=== PATIENT | female | born 1940 | race Caucasian/White ===

== ENCOUNTER 2016-08-07 09:34 | Emergency (ER) | payer MEDICARE, OTHER ==
[~2016-08-07] VITALS: Ht 165.1 cm; Wt 68.0 kg
--- NOTE | 2016-08-07 09:44 | ED General ---
General Stated Complaint: FALL Source of Information: Patient, EMS, [facility] Records Exam Limitations: No Limitations History of Present Illness Time Seen by Provider: 09:41 Initial Comments Patient became nauseated while taking a shower. She apparently got lightheaded and fell. She denies loss of consciousness but was dazed. Unclear if there was head trauma. Patient called for help and eventually a clinical nursing instructor came to her. They called 911. According to jail staff patient is not acting herself. She says she feels a little better now. No vomiting here. Allergies and Home Medications Allergies Coded Allergies: acetaminophen (Verified Allergy, Unknown, 08/07/16) chlorpromazine (Verified Allergy, Unknown, 08/07/16) dextromethorphan (Verified Allergy, Unknown, 08/07/16) doxylamine (Verified Allergy, Unknown, 08/07/16) fish oil (Verified Allergy, Unknown, 08/07/16) flurazepam (Verified Allergy, Unknown, 08/07/16) pineapple (Verified Allergy, Unknown, 08/07/16) pseudoephedrine (Verified Allergy, Unknown, 08/07/16) thioridazine (Verified Allergy, Unknown, 08/07/16) Uncoded Allergies: CHLORFENIRIAMINE (Allergy, Unknown, 08/07/16) TUNA (Allergy, Unknown, 08/07/16) Home Medications Divalproex Sodium 250 Mg Tablet.dr, 250 MG PO QID, (Reported) Docusate Sodium 100 Mg Capsule, 100 MG PO DAILY, (Reported) Haloperidol 10 Mg Tablet, 10 MG PO HS, (Reported) Haloperidol 10 Mg Tablet, 10 MG PO DAILY, (Reported) Haloperidol 20 Mg Tablet, 20 MG PO DAILY, (Reported) Loperamide HCl 2 Mg Tablet, 2 MG PO PRN, (Reported) Olanzapine 10 Mg Tablet, 10 MG PO TID, (Reported) Trihexyphenidyl HCl 5 Mg Tablet, 5 MG PO DAILY, (Reported) Constitutional: malaise, weakness Respiratory: no symptoms reported Cardiovascular: syncope Gastrointestinal: nausea, vomiting Genitourinary: no symptoms reported All Other Systems Reviewed Negative Unless Noted: Yes Past Dwjvlre-Mdxort-Kbnolw Hx Reviewed Nursing Assessment Reviewed/Agree w Nursing PMH: Yes Physical Exam Vital Signs Vital Sign - Last 12Hours 08/07/16 09:52 Temp 96.9 Pulse 85 Resp 16 B/P (MAP) 113/65 Pulse Ox 92 Capillary Refill : General Appearance: No Apparent Distress, WD/WN, Other (no signs of head trauma ) Eyes: Bilateral Eye EOMI, Bilateral Eye Normal Inspection, Bilateral Eye PERRL HEENT: PERRL/EOMI, Pharynx Normal Neck: Non Tender, Supple Respiratory: Lungs Clear, Normal Breath Sounds Cardiovascular: Regular Rate, Rhythm, No Edema Gastrointestinal: No Pulsatile Mass, Soft Extremity: Normal Inspection Neurologic/Psychiatric: Alert, No Motor/Sensory Deficits Skin: Normal Color, Warm/Dry Progress/Results/Core Measures Results/Orders Lab Results Laboratory Tests Test 08/07/16 09:47 Range/Units White Blood Count 5.6 4.3-11.0 10^3/uL Red Blood Count 4.69 4.35-5.85 10^6/uL Hemoglobin 14.0 11.5-16.0 G/DL Hematocrit 42 35-52 % Mean Corpuscular Volume 89 80-99 FL Mean Corpuscular Hemoglobin 30 25-34 PG Mean Corpuscular Hemoglobin Concent 34 32-36 G/DL Red Cell Distribution Width 15.9 H 10.0-14.5 % Platelet Count 147 130-400 10^3/uL Mean Platelet Volume 10.4 7.4-10.4 FL Neutrophils (%) (Auto) 56 42-75 % Lymphocytes (%) (Auto) 29 12-44 % Monocytes (%) (Auto) 13 H 0-12 % Eosinophils (%) (Auto) 2 0-10 % Basophils (%) (Auto) 0 0-10 % Neutrophils # (Auto) 3.1 1.8-7.8 X 10^3 Lymphocytes # (Auto) 1.6 1.0-4.0 X 10^3 Monocytes # (Auto) 0.7 0.0-1.0 X 10^3 Eosinophils # (Auto) 0.1 0.0-0.3 10^3/uL Basophils # (Auto) 0.0 0.0-0.1 10^3/uL Sodium Level 139 135-145 MMOL/L Potassium Level 4.2 3.6-5.0 MMOL/L Chloride Level 106 98-107 MMOL/L Carbon Dioxide Level 21 21-32 MMOL/L Anion Gap 12 5-14 MMOL/L Blood Urea Nitrogen 17 7-18 MG/DL Creatinine 0.79 0.60-1.30 MG/DL Estimat Glomerular Filtration Rate > 60 BUN/Creatinine Ratio 22 Glucose Level 81 70-105 MG/DL Calcium Level 8.8 8.5-10.1 MG/DL Total Bilirubin 0.3 0.1-1.0 MG/DL Aspartate Amino Transf (AST/SGOT) 20 5-34 U/L Alanine Aminotransferase (ALT/SGPT) 10 0-55 U/L Alkaline Phosphatase 69 40-136 U/L Total Protein 6.4 6.4-8.2 G/DL Albumin 3.4 3.2-4.5 G/DL Labs were reviewed My Orders Orders - SEGUN VELASQUEZ MD Cbc With Automated Diff (08/07/16 09:38) Comprehensive Metabolic Panel (08/07/16 09:38) Ct Head Wo (08/07/16 09:38) Ekg Tracing (08/07/16 09:38) Vital Signs/I&O Vital Sign - Last 12Hours 08/07/16 08/07/16 09:52 10:09 Temp 96.9 96.9 Pulse 85 85 Resp 16 16 B/P (MAP) 113/65 113/65 (81) Pulse Ox 92 92 Progress Note : Time: 10:27 Progress Note Patient feels "fine". Ready for discharge. Vital signs are stable. ECG Initial ECG Rhythm: Normal Sinus Initial ECG Intervals: Normal Initial ECG Impression: Nonspecific Changes Diagnostic Imaging Comments Date of Exam:08/07/16 CT HEAD WO PROCEDURE: CT head without contrast. TECHNIQUE: Multiple contiguous axial images were obtained through the brain without the use of intravenous contrast. INDICATION: Fall. FINDINGS: There is no intracranial hemorrhage, edema or mass effect. The brain parenchyma demonstrates periventricular and deep white matter hypodensities compatible with chronic microvascular ischemic changes. There is no hydrocephalus. No extra-axial fluid collections seen. The calvarium, the paranasal sinuses and orbits appear grossly unremarkable. IMPRESSION: No intracranial hemorrhage. Departure Impression Impression: Primary Impression: Fall (no obvious injury) Additional Impression: Vaso vagal episode Disposition: 01 HOME, SELF-CARE Condition: Stable Departure-Patient Inst. Decision time for Depature: 10:24 Referrals: JONATHAN GASCA MD (PCP/Family) Primary Care Physician Patient Instructions: Preventing Falls SEGUN VELASQUEZ MD Aug 07, 2016 09:44
[2016-08-07 09:53] LABS: BASOPHILS % (AUTO) 0 % (0-10); EOSINOPHILS # (AUTO) 0.1 10^3/uL (0.0-0.3); EOSINOPHILS % (AUTO) 2 % (0-10); LYMPHOCYTES # (AUTO) 1.6 X 10^3 (1.0-4.0); LYMPHOCYTES % (AUTO) 29 % (12-44); MEAN CORPUSCULAR HEMOGLOBIN 30 PG (25-34); MEAN CORPUSCULAR HGB CONC 34 G/DL (32-36); MEAN CORPUSCULAR VOLUME 89 FL (80-99); MEAN PLATELET VOLUME 10.4 FL (7.4-10.4); MONOCYTES # (AUTO) 0.7 X 10^3 (0.0-1.0); MONOCYTES % (AUTO) 13 % (0-12); NEUTROPHILS # (AUTO) 3.1 X 10^3 (1.8-7.8); NEUTROPHILS % (AUTO) 56 % (42-75); PLATELET COUNT 147 10^3/uL (130-400); RED BLOOD COUNT 4.69 10^6/uL (4.35-5.85); RED CELL DISTRIBUTION WIDTH 15.9 % (10.0-14.5); WHITE BLOOD COUNT 5.6 10^3/uL (4.3-11.0)
[2016-08-07] MEDS ORDERED: TRIH5TAB2 PO (10:04)
[2016-08-07] MEDS ORDERED: DOCU-143 PO (10:04)
[2016-08-07] MEDS ORDERED: HALO20TA PO (10:04)
[2016-08-07] MEDS ORDERED: OLAN10TA19 PO (10:04)
[2016-08-07] MEDS ORDERED: DIVA250T2 PO (10:04)
[2016-08-07] MEDS ORDERED: LOPE-134 PO (10:04)
[2016-08-07] MEDS ORDERED: HALO10TA PO ×2 (10:04)
[2016-08-07 10:13] LABS: ALANINE AMINOTRANSFERASE 10 U/L (0-55); ALBUMIN 3.4 G/DL (3.2-4.5); ANION GAP 12 MMOL/L (5-14); ASPARTATE AMINO TRANSFERASE 20 U/L (5-34); BILIRUBIN,TOTAL 0.3 MG/DL (0.1-1.0); BLOOD UREA NITROGEN 17 MG/DL (7-18); BUN/CREATININE RATIO 22; CALCIUM 8.8 MG/DL (8.5-10.1); CARBON DIOXIDE 21 MMOL/L (21-32); CHLORIDE 106 MMOL/L (98-107); CREATININE SERUM 0.79 MG/DL (0.60-1.30); GFR ESTIMATED > 60; GLUCOSE 81 MG/DL (70-105); POTASSIUM 4.2 MMOL/L (3.6-5.0); SODIUM 139 MMOL/L (135-145); TOTAL PROTEIN 6.4 G/DL (6.4-8.2)
--- NOTE | 2016-08-07 10:18 | Diagnostic Imaging Report ---
PROCEDURE: CT head without contrast. TECHNIQUE: Multiple contiguous axial images were obtained through the brain without the use of intravenous contrast. INDICATION: Fall. FINDINGS: There is no intracranial hemorrhage, edema or mass effect. The brain parenchyma demonstrates periventricular and deep white matter hypodensities compatible with chronic microvascular ischemic changes. There is no hydrocephalus. No extra-axial fluid collections seen. The calvarium, the paranasal sinuses and orbits appear grossly unremarkable. IMPRESSION: No intracranial hemorrhage. Dictated by: Dictated on workstation # [id number]
[2016-08-07 10:55] VITALS: BP 110/68
--- OUTSIDE RECORDS SUMMARY | 2016-08-09 12:16 | XMS REPORT | Continuity of Care Document ---
Author Organization Unknown Address [address] [place] [address] Care Team Providers Care Manager Banking Name Role Phone Cruz Khanna MD Unavailable Insurance Providers Payer Name Policy Number Subscriber Name Relationship MCR Medicare [id number] KIRSTEN SELF PATIENT/SELF MEDICAID [facility] [id number] KIRSTEN SELF PATIENT/SELF Advance Directives Directive Response Recorded Date/Time Advance Directive Information: AD BROCHURE GIVEN TO PT 01/06/16 11:33am Chief Complaint and Reason for Visit Reason for Visit BACKPAIN Problems Active Medical Problems Problem Onset Date Recorded Date Status Dyspnea Unknown 04/27/14 Active 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/27/14 Active Insect bites Unknown 10/20/14 Active Back pain Unknown 01/06/16 Active Medications Current Home Medications Medication Dose Units Route Directions Days/Qty Instructions Start Date MEDICATION RECONCILIATION (Medication Reconciliation) 1 EACH EA 1 EACH BY MOUTH ONE TIME ONLY Aripiprazole (Abilify Maintena) 400 MG SUSER.SYR 400 MG BY MOUTH DAILY 1 Benztropine (Cogentin) 1 MG UD.TAB 1 MG BY MOUTH TWICE DAILY Benztropine Mesylate 0.5 MG TABLET 0.5 MG BY MOUTH DAILY 28 Divalproex ER (DEPAKOTE ER (once daily)) 500 MG UD.TAB 500 MG BY MOUTH DAILY 28 Docusate Sodium (Colace) 100 MG CAPSULE 100 MG PO TWICE DAILY PRN STOOL SOFTENER Olanzapine 15 MG TABLET 15 MG BY MOUTH DAILY Omeprazole (Prilosec 20MG CAP) 20 MG UD.CAP 20 MG BY MOUTH DAILY Past Home Medications Medication Directions Ordered Status Amoxicillin 500 Mg Capsule Capsule, 500 Mg Po THREE TIMES DAILY Unknown Discontinued Benzonatate (Tessalon Perle) 100 Mg Cap Cap, 100 Mg Po THREE TIMES DAILY PRN cough 04/27/14 Discontinued Social History Problem Response Recorded Date Drug Use none 10/20/14 Alcohol Use none 10/20/14 Hospital Discharge Instructions No hospital discharge instructions. Plan of Care Discharge Date 01/06/16 Disposition HOME/SELF CARE Condition at Discharge Stable Instructions/Education Provided Taking Care of Your Back Prescriptions See Medications Section Referrals Cruz Khanna MD - Additional Instructions/Education Follow up with Dr. Khanna as scheduled today. Return to the ER as needed. Care Plan and Goals Problem: Back Pain Goal: Relief of back pain. Plan: Refer to patient instructions provided. Functional Status No functional status results. Allergies, Adverse Reactions, Alerts Allergen Type Severity Reaction Status Last Updated ACETAMINOPHEN Allergy Unknown UNKNOWN Active 10/20/14 FLURAZEPAM Allergy Unknown UNKNOWN Active 10/20/14 CHLORPROMAZINE Allergy Unknown UNKNOWN Active 10/20/14 THIORIDAZINE Allergy Unknown UNKNOWN Active 10/20/14 PINEAPPLE Allergy Unknown UNKNOWN Active 10/20/14 Tuna Allergy Unknown UNKNOWN Active 10/20/14 Immunizations Name Date Given Type *Flu Shot: None Historical *Tetanus Shot: Less than 5 Years Historical Vital Signs Vital Reading Collection Date/Time Result Blood Pressure 01/06/16 1:02pm 136/78 Patient Temperature 01/06/16 11:41am 97.9 Temperature Source 01/06/16 11:41am Temporal Respiratory Rate 01/06/16 1:02pm 18 Pulse Rate 01/06/16 1:02pm 82 Bedside Pulse Oximetry 01/06/16 1:02pm 98 Height 01/06/16 11:41am 5 ft 1 in Weight 01/06/16 11:41am 193 lb Body Mass Index 01/06/16 11:41am 36.[address] [id number] ED PHYSICIAN DOCUMENTATION Patient Name: KIRSTEN AWAD : 44 Unit #: [id number] Patient's Service Date: 01/06/16 ED Physician: Zaynab Mitchell MD (ED) Primary Physician: Cruz Khanna MD History of Present Illness General Chief Complaint Back Pain Stated Complaint BACK PAIN Time Seen by Provider 1205 Source patient Exam Limitations no limitations History of Present Illness Initial Comments The patient has bilateral mid back pain for four days. She states it started when she was masturbating. Location back Quality achy Severity moderate Duration days (four) Timing continuous Modifying Factors better with rest, worse with movement Associated Symptoms urinary frequency Allergies Coded Allergies: ACETAMINOPHEN (UNKNOWN 10/20/14) Converted from Generic Allergy: Acetaminophen CHLORPROMAZINE (From THORAZINE) (UNKNOWN 10/20/14) FLURAZEPAM (UNKNOWN 10/20/14) Converted from Generic Allergy: Flurazepam Hcl PINEAPPLE (UNKNOWN 10/20/14) THIORIDAZINE (UNKNOWN 10/20/14) Converted from Generic Allergy: Thioridazine Tuna (UNKNOWN 10/20/14) Home Medications Reported Medications Aripiprazole (Abilify Maintena) 400 MG BY MOUTH DAILY #1 Olanzapine 15 MG BY MOUTH DAILY Benztropine (Cogentin) 1 MG BY MOUTH BID Omeprazole (Prilosec 20MG CAP) 20 MG BY MOUTH DAILY MEDICATION RECONCILIATION (Medication Reconciliation) 1 EACH BY MOUTH ONE Benztropine Mesylate 0.5 MG BY MOUTH DAILY #28 Divalproex ER (DEPAKOTE ER (once daily)) 500 MG BY MOUTH DAILY #28 Docusate Sodium (Colace) 100 MG PO BID PRN STOOL SOFTENER Review of Systems Review of Systems Was ROS Completed? Yes Constitutional Denies fever, Denies chills ENT Denies nose congestion Respiratory Denies cough, Denies short of breath Cardiovascular Denies chest pain Gastrointestinal Denies abdominal pain, Denies constipation, Denies diarrhea, Denies nausea, Denies vomiting Genitourinary Reports frequency, Denies dysuria, Denies decreased urination Musculoskeletal Reports back pain, Denies neck pain Neurological Denies headache Past Medical History Past Medical History Medical History denies medical problems Surgical History tubal ligation Psychosocial History "mental health problems" the patient cannot specify Social History Smoker Former smoker Alcohol (Age 13 & Up) denies alcohol use Drugs (Age 13 & Up) prescription drug use Physical Exam Physical Exam Nursing Assessment Reviewed Yes Initial Vital Signs Vital Signs Result Date Time Pulse Ox 96 01/05 1141 B/P 141/75 01/05 1141 Temp 97.9 01/05 1141 Pulse 98 01/05 1141 Resp 18 01/05 1141 Constitutional no apparent distress, obese Ear, Nose, Throat hearing grossly normal Neck normal inspection, non-tender, supple, full range of motion Respiratory no respiratory distress, normal breath sounds, no accessory muscle use Cardiovascular regular rate/rhythm, no murmur Gastrointestinal soft, non tender, normal bowel sounds Musculoskeletal normal strength, lateral back pain bilaterally in the thoracic area Skin normal color, warm/dry Neurological no motor deficit, no sensory deficit Psychiatric alert, oriented, flat affect Progress Note Progress Note Progress Note Time 1306 Progress Note Patient going to Dr. Khanna's office for appointment. I discussed her case with him. Urine pending on discharge. Departure Departure Clinical Impression Primary Impression: Back pain Qualifiers: Back pain location: thoracic back pain Chronicity: acute Back pain laterality: bilateral Qualified Code: M54.6 - Pain in thoracic spine Time of Disposition 1301 Disposition HOME/SELF CARE Condition Stable Smoking Education Indicated No Patient Instructions Taking Care of Your Back Referrals Cruz Khanna MD (PCP/Family) Additional Instructions Follow up with Dr. Khanna as scheduled today. Return to the ER as needed. Zaynab Mitchell MD Electronically Signed 01/06/16 1307 Procedures No Known History of Procedures. Encounters Encounter Location Arrival/Admit Date Discharge/Depart Date Attending Provider Departed Emergency [facility] 01/06/16 11:32am 01/06/16 1:02pm Stephen (ED) Zaynab Oliver MD Encounter Diagnosis Back pain
--- OUTSIDE RECORDS SUMMARY | 2016-08-09 12:16 | XMS REPORT | Continuity of Care Document ---
Author Author [facility] Address Unknown Phone Unavailable Allergies Active Description Code Type Severity Reaction Onset Reported/Identified Relationship to Patient Clinical Status Yes ACETAMINOPHEN 3347 DRUG INGREDI N/A N/A Yes CHLORPHENIRAMINE 17407 DRUG INGREDI N/A N/A Yes CHLORPROMAZINE HCL 3810 DRUG INGREDI N/A N/A Yes DEXTROMETHORPHAN HBR 49612 DRUG N/A N/A Yes DIPHENHYDRAMINE 63982 DRUG INGREDI N/A N/A Yes DIPHENHYDRAMINE HCL 4102 DRUG INGREDI N/A N/A Yes DOXYLAMINE 69948 DRUG INGREDI N/A N/A Yes FLURAZEPAM HCL 4337 DRUG INGREDI N/A N/A Yes PSEUDOEPHEDRINE HCL 33245 DRUG N/A N/A Yes THIORIDAZINE HCL 5683 DRUG INGREDI N/A N/A Yes CHLORPROMAZINE 61300 DRUG INGREDI N/A Hives 02/11/2016 02/11/2016 Yes FISH OIL 61375 DRUG INGREDI N/A Hives 02/11/2016 02/11/2016 Yes FLURAZEPAM 70427 DRUG INGREDI N/A Hives 02/11/2016 02/11/2016 Yes PINEAPPLE 57661 DRUG INGREDI N/A Hives 02/11/2016 02/11/2016 Yes THIORIDAZINE 16442 DRUG INGREDI N/A Hives 02/11/2016 02/11/2016 Yes ACETAMINOPHEN 13948 DRUG INGREDI N/A Hives 02/11/2016 Medications Problems Procedures Results Test Result Range CBC WITH AUTO DIFFERENTIAL - 09/11/15 08:05 BASOPHILS RELATIVE PERCENT 0.4 % 0.0-2.5 EOSINOPHILS RELATIVE PERCENT 2.6 % <=5.0 HEMATOCRIT 43.1 % 34.9-44.5 HEMOGLOBIN 13.8 g/dL 12.0-15.5 LYMPHOCYTES RELATIVE PERCENT 33.4 % 22.0- 49.0 MEAN CORPUSCULAR HEMOGLOBIN 27.2 pg 26.0- 34.0 MEAN CORPUSCULAR HEMOGLOBIN CONC 32.0 g/dL 31.0-37.0 MEAN CORPUSCULAR VOLUME 84.8 fL 81.6- 98.3 MONOCYTES RELATIVE PERCENT 9.2 % 2.0-9.0 NEUTROPHILS RELATIVE PERCENT 54.4 % 40.0- 75.0 PLATELET COUNT 231 10E9/L 150-450 RED BLOOD CELL COUNT 5.08 10E12/L 3.90- 5.03 RED CELL DISTRIBUTION WIDTH 14.1 % 11.9- 15.5 [id number] 7.5 10E9/L 3.5-10.5 [id number] 2.50 10E9/L 0.90-2.90 [id number] 0.70 10E9/L 0.30-0.90 [id number] 0.20 10E9/L 0.05-0.50 [id number] 4.10 10E9/L 1.70-7.00 [id number] 0.00 10E9/L 0.00-0.30 LIPID PANEL-[place] - 09/11/15 08:05 CHOLESTEROL 186 mg/dL <=200 CHOLESTEROL/HDL RATIO 3.7 <=4.4 HDL CHOLESTEROL 50 mg/dL 40-90 TRIGLYCERIDE 212 mg/dL 0-522 [id number] 94 mg/dL COMPREHENSIVE METABOLIC PANEL - 09/11/15 08:05 ALBUMIN 3.4 g/dL 3.5-5.0 ALKALINE PHOSPHATASE 81 U/L 46-116 ALT 29 U/L 9-52 AST 24 U/L 14-36 BILIRUBIN,TOTAL 0.5 mg/dL 0.2-1.3 BUN BLOOD 14 mg/dL 7-17 CALCIUM 8.9 mg/dL 8.4-10.2 CHLORIDE 102 mmol/L 99-108 CO2 26 mmol/L 22-30 CREATININE 0.86 mg/dL 0.70-1.20 EGFR > mL/min >59 GLUCOSE 94 mg/dL 64-110 POTASSIUM 3.9 mmol/L 3.6-5.0 PROTEIN TOTAL 7.3 g/dL 6.0-8.0 SODIUM 136 mmol/L 138-148 T4, FREE - 09/11/15 08:05 FREE T4 0.81 ng/dL 0.70-1.71 Encounters ACCT No. Visit Date/Time Discharge Status Pt. Type Provider Facility Loc./Unit Complaint [id number] 03/20/2016 13:45:47 Document Registration [id number] 02/11/2016 12:58:49 ACT Outpatient VANDANA SANTOYO [facility] [id number] 01/06/2016 13:11:07 ACT Outpatient IESHA ASENCIO [facility] [id number] 12/23/2015 16:00:24 ACT Outpatient VANDANA SANTOYO [facility] [id number] 11/20/2015 14:13:44 ACT Outpatient KILEY HULL [facility] [id number] 11/11/2015 10:47:38 ACT Outpatient VANDANA SANTOYO [facility] [id number] 09/17/2015 10:23:25 Document Registration [id number] 09/11/2015 08:17:25 ACT Outpatient SUNDAY PALACIO [facility] [id number] 09/11/2015 07:56:44 ACT Outpatient [facility] [id number] 09/09/2015 09:29:07 ACT Outpatient IESHA ASENCIO [facility] [id number] 09/04/2015 12:23:10 ACT Outpatient VANDANA SANTOYO [facility] [id number] 07/19/2015 15:55:11 ACT Outpatient VANDANA SANTOYO [facility] [id number] 07/08/2015 10:00:50 ACT Outpatient VANDANA SANTOYO [facility] [id number] 06/10/2015 10:39:12 ACT Outpatient SHARDA SANTOYOGHCHAGO [place] [facility]
--- OUTSIDE RECORDS SUMMARY | 2016-08-09 12:16 | XMS REPORT | Continuity of Care Document ---
Author Author [facility] Address [address] [place] [address] Care Team Providers Care [employer]set Molder Name Role Phone Cruz Khanna MD Unavailable Insurance Providers Payer Name Policy Number Subscriber Name Relationship Medicare [id number] KIRSTEN AWAD PATIENT/SELF Advance Directives Directive Response Recorded Date/Time Advance Directive Information: AD BROCHURE GIVEN TO PT 06/01/16 6:54am Chief Complaint and Reason for Visit Reason for Visit MENTAL Problems Active Medical Problems Problem Onset Date Recorded Date Status Back pain Unknown 01/06/16 Active Bipolar affective disorder Unknown 01/06/16 Active Dystrophic nail Unknown 01/06/16 Active GERD (gastroesophageal reflux disease) Unknown 01/06/16 Active Osteopenia Unknown 01/06/16 Active Bipolar I disorder with phuong Unknown 06/01/16 Active UTI (urinary tract infection) Unknown 06/01/16 Active Medications Current Home Medications Medication Dose Units Route Directions Days/Qty Instructions Start Date Aripiprazole (Abilify Maintena) 400 MG SUSER.SYR 400 MG IM MONTHLY 1 Ibuprofen* (MOTRIN*) 200 MG TABLET 600 MG BY MOUTH EVERY 6 HOURS NEEDED PRN MILD PAIN Lorazepam (Ativan) 1 MG TABLET 1 MG BY MOUTH DAILY NEEDED PRN ANXIETY Past Home Medications Medication Directions Ordered Status Amoxicillin* (Amoxil*) 500 Mg Capsule Capsule, 500 Mg Po THREE TIMES DAILY Unknown Discontinued Benzonatate (Tessalon Perle) 100 Mg Cap Cap, 100 Mg Po THREE TIMES DAILY PRN cough 04/27/14 Discontinued Social History Problem Response Recorded Date Drug Use none 10/20/14 Alcohol Use none 10/20/14 Hospital Discharge Instructions No hospital discharge instructions. Plan of Care Discharge Date 06/01/16 Disposition OTHER INSTITUTE Condition at Discharge Stable Prescriptions See Medications Section Referrals Cruz Khanna MD - Functional Status No functional status results. Allergies, Adverse Reactions, Alerts Allergen Type Severity Reaction Status Last Updated ACETAMINOPHEN Allergy Intermediate HIVES Active 06/01/16 PSEUDOEPHEDRINE Allergy Unknown Active 01/06/16 DEXTROMETHORPHAN Allergy Unknown Active 01/06/16 CHLORPHENIRAMINE Allergy Intermediate HIVES Active 06/01/16 FLURAZEPAM Allergy Intermediate HIVES Active 06/01/16 CHLORPROMAZINE Allergy Unknown UNKNOWN Active 10/20/14 THIORIDAZINE Allergy Intermediate HIVES Active 06/01/16 DIPHENHYDRAMINE Allergy Unknown Active 01/06/16 DOXYLAMINE Allergy Unknown Active 01/06/16 PINEAPPLE Allergy Intermediate HIVES Active 06/01/16 FISH OIL Allergy Intermediate HIVES Active 06/01/16 Tuna Allergy Unknown UNKNOWN Active 10/20/14 Immunizations Name Date Given Type *Flu Shot: Unknown Historical *Tetanus Shot: UNKOWN Historical *MMR: Unknown Historical *T Dap: 09/18/2010 Historical Vital Signs Vital Reading Collection Date/Time Result Blood Pressure 06/01/16 7:00am 137/102 Patient Temperature 06/01/16 8:55am 97.8 Temperature Source 06/01/16 8:55am Rectal Respiratory Rate 06/01/16 7:00am 32 Pulse Rate 06/01/16 7:00am 109 Bedside Pulse Oximetry 06/01/16 7:00am 97 Height 06/01/16 7:00am 5 ft 5 in Weight 06/01/16 7:00am 150 lb Body Mass Index 06/01/16 7:00am 25.0 Results [place] [id number] ED PHYSICIAN DOCUMENTATION Patient Name: KISRTEN AWAD : 44 Unit #: [id number] Patient's Service Date: 06/01/16 ED Physician: Cricket Aragon MD Primary Physician: Cruz Khanna MD History of Present Illness General Chief Complaint Mental Status Change Stated Complaint MENTAL Time Seen by Provider [id number] Source patient Exam Limitations clinical condition History of Present Illness Initial Comments Pt was found by police wandering around [employer], very cold and confused Context present at rest Quality denies pain Severity moderate Duration unknown Allergies Coded Allergies: ACETAMINOPHEN (Intermediate, HIVES 06/01/16) Converted from Generic Allergy: Acetaminophen CHLORPHENIRAMINE (Intermediate, HIVES 06/01/16) FISH OIL (Intermediate, HIVES 06/01/16) FLURAZEPAM (Intermediate, HIVES 06/01/16) Converted from Generic Allergy: Flurazepam Hcl PINEAPPLE (Intermediate, HIVES 06/01/16) THIORIDAZINE (Intermediate, HIVES 06/01/16) Converted from Generic Allergy: Thioridazine CHLORPROMAZINE (From THORAZINE) (UNKNOWN 10/20/14) DEXTROMETHORPHAN (01/06/16) DIPHENHYDRAMINE (01/06/16) DOXYLAMINE (01/06/16) PSEUDOEPHEDRINE (01/06/16) Tuna (UNKNOWN 10/20/14) Home Medications Reported Medications Aripiprazole (Abilify Maintena) 400 MG IM MONTHLY #1 Lorazepam (Ativan) 1 MG BY MOUTH DAILY PRN PRN ANXIETY Ibuprofen* (MOTRIN*) 600 MG BY MOUTH Q6H PRN PRN MILD PAIN Review of Systems Review of Systems Was ROS Completed? Yes Constitutional Denies fever, Denies chills, Denies diaphoresis Eyes Denies eye pain, Denies blurred vision, Denies double vision, Denies loss of vision Respiratory Denies cough, Denies short of breath, Denies wheezing, Denies stridor Cardiovascular Denies chest pain, Denies palpitations, Denies syncope, Denies other Gastrointestinal Denies abdominal pain, Denies constipation, Denies diarrhea, Denies bloody stools Genitourinary Denies dysuria, Denies frequency, Denies hematuria, Denies decreased urination Musculoskeletal Denies neck pain, Denies back pain, Denies joint pain, Denies joint swelling Neurological Denies headache, Denies numbness, Denies paresthesia Psychiatric Reports anxiety, Reports flight of ideas, Denies suicidal thoughts, Denies Denies homicidal thoughts, Denies homicidal plans Past Medical History Past Medical History Surgical History tubal ligation Psychosocial History "mental health problems" the patient cannot specify Social History Smoker Former smoker Physical Exam Physical Exam Exam Limitations clinical condition Nursing Assessment Reviewed Yes Initial Vital Signs Vital Signs Result Date Time Pulse Ox 97 06/01 699 B/P 137/102 06/01 699 Temp 96.7 06/01 699 Pulse 109 06/01 699 Resp 32 06/01 699 Constitutional well developed, well nourished, mild distress Eyes bilateral eyes PERRL, bilateral eyes EOMI, bilateral eyes pupils equal Ear, Nose, Throat hearing grossly normal, normal TM (R), normal TM (L) Respiratory no respiratory distress, normal breath sounds, no accessory muscle use Cardiovascular regular rate/rhythm, no murmur, no edema Gastrointestinal soft, non tender, normal bowel sounds Musculoskeletal gait WNL, normal strength, no vertebral tenderness Neurological process planner II-XII normal, no motor deficit, no sensory deficit Results Results Labs Laboratory Tests 06/01 06/01 06/01 06/01 06/01 0707 0712 0740 0740 0740 Chemistry Sodium (135 - 150 mmol/L) 140 Potassium (3.4 - 5.2 mmol/L) 3.8 Chloride (100 - 112 mmol/L) 106 Carbon Dioxide (21 - 33 meq/L) 22 Anion Gap (8 - 16 mmol/L) 12 BUN (5 - 21 mg/dl) 15 Creatinine (0.60 - 1.30 mg/dl) 0.95 GFR Calculation (> 60 mL/Min) > 60 Glucose (70 - 99 mg/dl) 154 H POC Glucose (70 - 99 mg/dl) 148 H Lactic Acid (0.4 - 2.0 mmol/L) 2.8 *H Calcium (8.6 - 10.5 mg/dl) 9.1 Total Bilirubin (0.0 - 1.2 mg/dl) 0.3 AST (6 - 37 U/L) 28 ALT (12 - 78 U/L) 26 Alkaline Phosphatase (46 - 116 U/L) 78 Troponin I (0.00 - 0.05 ng/ml) < 0.02 Total Protein (6.4 - 8.2 g/dl) 7.6 Albumin (3.3 - 4.5 g/dl) 3.7 Albumin/Globulin Ratio (0.7 - 2.0) 0.9 TSH (0.36 - 3.74 uIU/ml) Cancelled 3.16 Hematology WBC (4.5 - 11.0 10^3/uL) 7.4 RBC (3.50 - 5.40 10^6/uL) 5.15 Hgb (12.0 - 16.0 g/dl) 14.4 Hct (36 - 48 %) 44.6 MCV (79 - 99 fL) 86.7 MCH (25.0 - 34.0 pg) 27.9 MCHC (31.0 - 36.0 g/dL) 32.2 RDW (11.0 - 15.0 %) 16.1 H Plt Count (130 - 400 10^3/uL) 226 MPV (7.0 - 11.0 fL) 8.9 Neutrophils % (43.0 - 72.0 %) 72.0 Lymphocytes % (15.0 - 45.0 %) 18.3 Monocytes % (1.0 - 12.0 %) 7.9 Eosinophils % (0.0 - 6.0 %) 1.5 Basophils % (0.0 - 2.0 %) 0.3 Neutrophils # (1.0 - 8.0 10^3/uL) 5.3 Lymphocytes # (1.0 - 3.0 10^3/uL) 1.3 Monocytes # (0.0 - 1.0 10^3/uL) 0.6 Eosinophils # (0.0 - 0.4 10^3/uL) 0.1 Basophils # (0.0 - 0.2 10^3/uL) 0.0 Toxicology Serum Alcohol (0 mg/dl) 0 06/01 06/01 06/01 06/01 06/01 0753 0814 1046 1046 1340 Chemistry Lactic Acid (0.4 - 2.0 mmol/L) 0.9 Troponin I (0.00 - 0.05 ng/ml) 0.02 Cancelled Coagulation PT (11.9 - 14.4 Seconds) 13.6 INR (0.87 - 1.13) 1.05 APTT (23.9 - 34.0 Seconds) 26.1 Toxicology Urine Opiates Screen Negative Urine Methadone Screen Negative Ur Barbiturates Screen Negative Ur Phencyclidine Scrn Negative Ur Amphetamines Screen Negative U Benzodiazepines Scrn Negative U Cocaine Metab Screen Negative U Cannabinoids Screen Negative Urines Urine Color (Yellow) Yellow Urine Appearance (Clear) Clear Urine pH (4.5 - 7.5) 5.5 Ur Specific Bourg (1.010 - .025) 1.025 Urine Protein (Negative) Negative Urine Ketones (Negative) Negative Urine Blood (Negative) 1+ H Urine Nitrate (Negative) Negative Urine Bilirubin (Negative) Negative Urine Urobilinogen (<=1.0) 1.0 Ur Leukocyte Esterase (Negative) Negative Urine RBC (0 - 5) 2 - 5 Ur Epithelial Cells (5 - 10) O - 2 Amorphous Crystals (None Seen) 2+ H Urine Bacteria (Trace) Trace Urine Mucus (None Seen) 1+ H Urine Glucose (Negative) Negative Microbiology Microbiology Date/Time Procedure - Status Source Growth 06/01 0753 Blood Culture - RECD Blood Progress Note Medications Medications Medications Given in ED Sig/Td Start time Last Medication Dose Route Stop Time Status Admin/ Admin Dose Haloperidol 5 MG X1ED STA 06/01 1324 DC 06/01 (Haldol 5 MG/ML*) IM 06/01 1325 1339 5 MG Sodium Chloride 1,000 ML .Q1H 06/01 0839 DC 06/01 (0.9% Sodium IV 06/01 0938 0844 Chloride) 1,000 MLS Sodium Chloride 1,000 ML .Q1H 06/01 0708 DC 06/01 (0.9% Sodium IV 06/01 0807 0718 Chloride) 1,000 MLS Ziprasidone 10 MG X1ED STA 06/01 1133 DC 06/01 (Geodon IM*) IM 06/01 1134 1159 10 MG Progress Note Progress Note Time 1423 Progress Note Pt remained very manic despite geodon and Haldol and talked and yelled constantly for 8 h Consults Consults Time of Consult 0930 Discussed With Cruz Khanna MD Reason/Comments spoke with Dr Khanna about possible admission and he felt like the patient needed possible Mental Health admission. Have called mental health. Departure Departure Clinical Impression Primary Impression: Bipolar I disorder with phuong Secondary Impressions: UTI (urinary tract infection) Qualifiers: Urinary tract infection type: acute cystitis Hematuria presence: with hematuria Qualified Code: N30.01 - Acute cystitis with hematuria Time of Disposition 1422 Disposition OTHER INSTITUTE Condition Stable Tobacco Education Tobacco Non-User Referrals Cruz Khanna MD (PCP/Family) Comments Discussed case with Dr Alicia freedman [facility] and they agreed to acept in transfer Cricket Aragon MD Electronically Signed 06/01/16 1425 Procedures No Known History of Procedures. Encounters Encounter Location Arrival/Admit Date Discharge/Depart Date Attending Provider Departed [facility] 06/01/16 6:52am 06/01/16 3:25pm Cricket Aragon MD Encounter Diagnosis Bipolar I disorder, most recent episode (or current) manic Urinary tract infection
== END 2016-08-07 10:55 ==
LOC: ER 09:37
DX: R55 Syncope and collapse (principal); R11.0 Nausea
CPT/HCPCS: 36415; 70450; 80053; 85025; 93005